=== PATIENT | male | born 1970 | race Caucasian/White ===

== ENCOUNTER 2021-03-31 19:48 | Emergency (ER) | payer OTHER ==
[~2021-03-31 19:48] MED LIST: ASPIRIN325 MG PO; ATORVASTATIN CA40 MG PO; BACLOFEN 10MG T10 MG PO; CELEXA20 MG PO; DUONEB 2.5-0.5M1 AMP INH; ESOMEPRAZOLE MA40 MG PO; FLOMAX0.4 MG PO; LOVAZA1 GM PO; MAG-OXIDE 400M400 MG PO; MEDROL 4MG DOSEP4 MG PO; NAPROXEN500 MG PO; NEURONTIN300 MG PO; PRINIVIL20 MG PO; ROBAXIN750 MG PO; TRAZODONE 50MG50 MG PO; TRELEGY ELLIPT1 EACH INH; ULTRAM50 MG PO; VENTOLIN HFA IN18 GM INH; VITAMIN B-121000 MC1 PO; WELCHOL625 MG PO
[2021-03-31 20:33] LABS: BASOPHIL 0.9 % (0-2); EOSINOPHIL 14.7 % (0-5); HCT 44.1 % (42.0-52.0); HGB 14.9 g/dl (13.2-18.0); LYMPHOCYTE 35.4 % (15-48); MCH 30.3 pg (25.0-31.0); MCHC 33.8 g/dL (32.0-36.0); MCV 89.8 fL (78.0-100.0); MONOCYTE 7.8 % (0-12); MPV 8.8 fL (6.0-9.5); NEUTROPHIL 40.9 % (41-80); NRBC 0; PLT 270 K/uL (150-400); RBC 4.91 M/uL (4.70-6.00); RDW 13.7 % (11.5-14.0); WBC 10.1 K/uL (4.0-10.5)
[2021-03-31 20:38] LABS: INR 0.89 (0.9-1.2); PROTHROMBIN TIME 11.4 SECONDS (11.4-13.6)
[2021-03-31 20:56] LABS: ALBUMIN 3.8 g/dL (3.4-5.0); ALKALINE PHOSHATASE 127 U/L (46-116); ALT 39 U/L (16-63); AST 20 U/L (15-37); BILIRUBIN - TOTAL 0.5 mg/dL (0.2-1.0); BUN 9 mg/dL (7-18); BUN/CREAT RATIO (CALC) 9.2 RATIO; CHLORIDE 108 mmol/L (98-107); CO2 (BICARBONATE) 26 mmol/L (21-32); CREATININE 0.98 mg/dL (0.67-1.17); GLOBULIN (CALCULATION) 4.1 g/dL; GLUCOSE 80 mg/dL (74-106); TOTAL PROTEIN 7.9 g/dL (6.4-8.2)
[2021-03-31 20:59] LABS: C-REACTIVE PROTEIN < 0.20 mg/dL (<=0.90)
[2021-03-31] MEDS ORDERED: IBUPROFEN800 MG PO (23:34)
[2021-03-31] MEDS ORDERED: PERCOCET 5-3251 EACH PO (23:34)
[2021-03-31] MEDS ORDERED: CYCLOBENZAPRINE10 MG PO (23:34)
[2021-03-31] MEDS ORDERED: VIBRAMYCIN100 MG PO (23:34)
== END 2021-03-31 23:49 | disposition home or self-care (01) ==
LOC: FER 19:48
PROVIDERS: Emergency Medicine Emergency Medical Services
DX: M54.2 Cervicalgia (principal); I10 Essential (primary) hypertension; R10.84 Generalized abdominal pain; F17.210 Nicotine dependence, cigarettes, uncomplicated; Z86.14 Personal history of Methicillin resistant Staphylococcus aureus infection; Z20.822 Contact with and (suspected) exposure to COVID-19
CPT/HCPCS: 36415; 70491; 80053; 83605; 84145; 85025; 85610; 86140; 87040; 87077; 87186; J0696; J1100; J1170; J1885; J2405; J3370; J7050; Q9967; U0002

== ENCOUNTER 2021-06-19 16:35 | Emergency (ER) | payer OTHER ==
[~2021-06-19 16:35] MED LIST changes: +CYCLOBENZAPRINE10 MG PO; +IBUPROFEN800 MG PO; +PERCOCET 5-3251 EACH PO; +VIBRAMYCIN100 MG PO
[2021-06-19 17:39] LABS: INFLUENZA A NAA NEGATIVE (NEGATIVE)
[2021-06-19 17:50] LABS: CORONAVIRUS 2019 SARS-COV-2 POSITIVE (NEGATIVE)
[2021-06-19 18:06] LABS: BASOPHIL 0.4 % (0-2); EOSINOPHIL 3.2 % (0-5); HCT 42.4 % (42.0-52.0); LYMPHOCYTE 37.8 % (15-48); MCH 30.2 pg (25.0-31.0); MCV 91.4 fL (78.0-100.0); MPV 9.7 fL (6.0-9.5); NRBC 0; PLT 194 K/uL (150-400); RBC 4.64 M/uL (4.70-6.00); RDW 14.2 % (11.5-14.0)
[2021-06-19] MEDS ORDERED: MEDROL 4MG DOSEP4 MG PO (18:09)
[2021-06-19] MEDS ORDERED: VENTOLIN HFA18 GM INH (18:09)
[2021-06-19] MEDS ORDERED: NAPROXEN500 MG PO (18:09)
[2021-06-19] MEDS ORDERED: ZOFRAN4 M1 PO (18:09)
[2021-06-19 18:13] LABS: NEUTROPHIL 48.2 % (41-80)
[2021-06-19 18:30] LABS: ALBUMIN 3.4 g/dL (3.4-5.0); BILIRUBIN - TOTAL 0.6 mg/dL (0.2-1.0); BUN/CREAT RATIO (CALC) 12.8 RATIO; CREATININE 0.78 mg/dL (0.67-1.17); GLOBULIN (CALCULATION) 3.3 g/dL; TOTAL PROTEIN 6.7 g/dL (6.4-8.2)
== END 2021-06-19 18:30 | disposition home or self-care (01) ==
LOC: FER 16:35
PROVIDERS: Emergency Medicine
DX: U07.1 COVID-19 (principal); F17.210 Nicotine dependence, cigarettes, uncomplicated
CPT/HCPCS: 36415; 80053; 84145; 85025; 93005; J1885; J2405; J7030; U0002

== ENCOUNTER 2022-05-23 04:00 | Emergency (ER) | payer OTHER ==
[~2022-05-23 04:00] MED LIST changes: +VENTOLIN HFA18 GM INH; +ZOFRAN4 M1 PO
[2022-05-23 04:35] LABS: BASOPHIL 0.5 % (0-2); HCT 43.3 % (42.0-52.0); HGB 14.6 g/dl (13.2-18.0); LYMPHOCYTE 23.9 % (15-48); MCH 31.5 pg (25.0-31.0); MCHC 33.7 g/dL (32.0-36.0); MCV 93.3 fL (78.0-100.0); MONOCYTE 7.1 % (0-12); MPV 8.6 fL (6.0-9.5); NEUTROPHIL 67.2 % (41-80); NRBC 0; PLT 245 K/uL (150-400); RBC 4.64 M/uL (4.70-6.00); RDW 13.5 % (11.5-14.0); WBC 12.4 K/uL (4.0-10.5)
[2022-05-23 04:52] LABS: BUN/CREAT RATIO (CALC) 14.6 RATIO; CREATININE 0.82 mg/dL (0.67-1.17); POTASSIUM 3.8 mmol/L (3.5-5.1)
[2022-05-23 05:09] LABS: CORONAVIRUS 2019 SARS-COV-2 NEGATIVE (NEGATIVE); INFLUENZA A NAA NEGATIVE (NEGATIVE)
[2022-05-23] MEDS ORDERED: AZITHROMYCIN250 MG PO (08:37)
== END 2022-05-23 08:43 | disposition home or self-care (01) ==
LOC: FER 04:00
PROVIDERS: Internal Medicine
DX: J40 Bronchitis, not specified as acute or chronic (principal); I10 Essential (primary) hypertension; F17.210 Nicotine dependence, cigarettes, uncomplicated; Z20.822 Contact with and (suspected) exposure to COVID-19; Z28.310 Unvaccinated for COVID-19
CPT/HCPCS: 36415; 70490; 71275; 80048; 83880; 84145; 85025; 87880; 94640; J1100; J7120; Q9967; U0002